=== PATIENT | female | born 1975 | race Caucasian/White ===

== ENCOUNTER 2019-11-13 15:57 | Inpatient (IN) | payer BC, OTHER ==
[~2019-11-13] VITALS: Ht 167.4 cm; Wt 145.5 kg
[~2019-11-13 15:57] MED LIST: HYDR-3720 PO; HYDR1CAP2; IBUPROFEN; PENI250T4
[2019-11-13] MEDS ORDERED: LACTATED RINGERS 1,000 ML IV ONE (16:10)
[2019-11-13] MEDS ORDERED: KETOROLAC 30 MG/ML VIAL IVP ONE (16:30)
[2019-11-13] MEDS ORDERED: NS IV 1000 ML 1,000 ML IV SCH (16:30)
[2019-11-13] MEDS ORDERED: fentaNYL INJECTION 100 MCG/2 ML AMP IVP ONE (16:30)
[2019-11-13 17:02] LABS: BASOPHILS % (AUTO) 0 % (0-10); EOSINOPHILS # (AUTO) 0.1 10^3/uL (0.0-0.3); EOSINOPHILS % (AUTO) 1 % (0-10); HEMATOCRIT 38 % (35-52); HEMOGLOBIN 12.9 G/DL (11.5-16.0); LYMPHOCYTES # (AUTO) 2.5 X 10^3 (1.0-4.0); LYMPHOCYTES % (AUTO) 13 % (12-44); MEAN CORPUSCULAR HEMOGLOBIN 29 PG (25-34); MEAN CORPUSCULAR HGB CONC 34 G/DL (32-36); MEAN CORPUSCULAR VOLUME 85 FL (80-99); MEAN PLATELET VOLUME 11.1 FL (7.4-10.4); MONOCYTES # (AUTO) 0.9 X 10^3 (0.0-1.0); MONOCYTES % (AUTO) 5 % (0-12); NEUTROPHILS # (AUTO) 15.1 X 10^3 (1.8-7.8); NEUTROPHILS % (AUTO) 81 % (42-75); PLATELET COUNT 300 10^3/uL (130-400); WHITE BLOOD COUNT 18.7 10^3/uL (4.3-11.0)
[2019-11-13 17:26] LABS: ALANINE AMINOTRANSFERASE 21 U/L (0-55); ALBUMIN 4.1 GM/DL (3.2-4.5); ALKALINE PHOSPHATASE 58 U/L (40-136); BILIRUBIN,TOTAL 0.6 MG/DL (0.1-1.0); BUN/CREATININE RATIO 10; CALCIUM 8.9 MG/DL (8.5-10.1); CARBON DIOXIDE 20 MMOL/L (21-32); CHLORIDE 104 MMOL/L (98-107); CREATININE SERUM 0.93 MG/DL (0.60-1.30); GFR ESTIMATED > 60; GLUCOSE 105 MG/DL (70-105); LIPASE 14 U/L (8-78); MAGNESIUM 1.9 MG/DL (1.6-2.4); POTASSIUM 3.3 MMOL/L (3.6-5.0); SODIUM 137 MMOL/L (135-145); TOTAL PROTEIN 7.6 GM/DL (6.4-8.2)
--- NOTE | 2019-11-13 17:28 | Diagnostic Imaging Report ---
CLINICAL INDICATION: Patient with left lower abdominal pain with radiation to back. EXAM: CT exam of the abdomen and pelvis is performed without IV or oral contrast using stone protocol. Coronal and sagittal reformatted images were created. Auto Exposure Controls were utilized during the CT exam to meet ALARA standards for radiation dose reduction. COMPARISONS: Ultrasound of the abdomen dated 06/27/2017. FINDINGS: Visualized lung bases: Unremarkable. Liver: Unremarkable as visualized. Gallbladder: Gallbladder is surgically resected. Pancreas: Unremarkable as visualized. Spleen: Unremarkable as visualized. Adrenal glands: Unremarkable. Kidneys/ ureters: Unremarkable as visualized. Aorta: Unremarkable as visualized. Intraabdominal/ retroperitoneal contents: Unremarkable. Intestines: There is a short segment of bowel wall thickening involving the proximal sigmoid colon with adjacent fat stranding, most concerning for diverticulitis. There are diverticula seen involving the transverse colon and descending colon. There is no intra-abdominal free air or abscess seen. Remainder of the intestines are unremarkable. There is no intestinal obstruction seen. Appendix: Unremarkable. Bladder: Unremarkable as visualized. Pelvic organs: Unremarkable as visualized. Extra abdominal/ pelvis regions: Unremarkable. Abdominal wall: Unremarkable. Bones: There are degenerative spurs involving both hips. There are small spurs involving the lower thoracic spine and lumbar spine. There is lower lumbar spine facet arthropathy. IMPRESSION: There is sigmoid diverticulitis. There is no abscess or intra-abdominal free air. Dictated by: Dictated on workstation # [id number]
--- NOTE | 2019-11-13 17:31 | ED Abdominal Pain ---
General Chief Complaint: Abdominal/GI Problems Stated Complaint: LEFT LOWER ABD PAIN;BACK PAIN Nursing Triage Note: AMB TO ROOM [place] [facility] WITH L LOWER ABD PAIN WITH RADIATION TO BACK. Sepsis Screen: No Definite Risk Source of Information: Patient Exam Limitations: No Limitations History of Present Illness Date Seen by Provider: Nov 13, 2019 Time Seen by Provider: 16:15 Initial Comments 44-year-old female who presents to the emergency room with complaints of left lower quadrant abdominal pain that radiates to her left flank and lower back. She denies any fevers, nausea, vomiting, diarrhea. She reports that the pain started this morning and has progressively gotten worse. She was seen and evaluated [place] [facility] and sent to the emergency from there. Timing/Duration: Getting Worse Severity/Quality: Sharp Location: LLQ Radiation: Back, Flank Associated Symptoms: Back Pain Allergies and Home Medications Allergies Coded Allergies: amoxicillin (Unverified Allergy, Mild, 10/03/08) codeine (Unverified Allergy, Mild, 10/03/08) potassium clavulanate (Unverified Allergy, Mild, 10/03/08) Home Medications Hydrocodone Bit/Acetaminophen 1 Ea Tab, 1 EA PO Q 4 - 6 HRS PRN Prescribed by: CASEY HARPER on 10/03/081922 Patient Home Medication List Home Medication List Reviewed: Yes Review of Systems Review of Systems Constitutional: see HPI; No chills, No fever Gastrointestinal: See HPI, Abdominal Pain Genitourinary: See HPI, Flank Pain Musculoskeletal: see HPI, back pain All Other Systems Reviewed Negative Unless Noted: Yes Past Xhxzvxk-Luereq-Pdanyv Hx Past Med/Social Hx: Reviewed Nursing Past Med/Soc Hx Patient Social History Alcohol Use: Denies Use Recreational Drug Use: No Smoking Status: Never a Smoker Recent Foreign Travel: No Contact w/Someone Who Travel: No Recent Infectious Disease Expo: No Past Medical History Surgeries: Yes Gallbladder, Hysterectomy, Tonsillectomy Respiratory: No Cardiac: Yes Hypertension Genitourinary: No Musculoskeletal: No Endocrine: No HEENT: No Cancer: No Psychosocial: No Family Medical History Reviewed Nursing Family Hx Physical Exam Vital Signs Vital Signs - First Documented 11/13/19 16:08 Temp 37.0 Pulse 92 Resp 18 B/P (MAP) 205/119 (147) Pulse Ox 98 O2 Delivery Room Air Capillary Refill : Less Than 3 Seconds Height/Weight/BMI Height: '" Weight: lbs. oz. kg; 49.00 BMI Method: General Appearance: WD/WN Respiratory: chest non-tender, lungs clear, normal breath sounds, no respiratory distress, no accessory muscle use Cardiovascular: normal peripheral pulses, regular rate, rhythm, no edema, no gallop, no JVD, no murmur Gastrointestinal: normal bowel sounds, soft, no organomegaly, no pulsatile mass, tenderness (left lower quadrant tenderness) Extremities: normal capillary refill Neurologic/Psychiatric: alert, normal mood/affect, oriented x 3 Skin: normal color, warm/dry Progress/Results/Core Measures Results/Orders Lab Results Laboratory Tests Test 11/13/19 16:50 11/13/19 17:55 Range/Units White Blood Count 18.7 H 4.3-11.0 10^3/uL Red Blood Count 4.43 4.35-5.85 10^6/uL Hemoglobin 12.9 11.5-16.0 G/DL Hematocrit 38 35-52 % Mean Corpuscular Volume 85 80-99 FL Mean Corpuscular Hemoglobin 29 25-34 PG Mean Corpuscular Hemoglobin Concent 34 32-36 G/DL Red Cell Distribution Width 13.8 10.0-14.5 % Platelet Count 300 130-400 10^3/uL Mean Platelet Volume 11.1 H 7.4-10.4 FL Neutrophils (%) (Auto) 81 H 42-75 % Lymphocytes (%) (Auto) 13 12-44 % Monocytes (%) (Auto) 5 0-12 % Eosinophils (%) (Auto) 1 0-10 % Basophils (%) (Auto) 0 0-10 % Neutrophils # (Auto) 15.1 H 1.8-7.8 X 10^3 Lymphocytes # (Auto) 2.5 1.0-4.0 X 10^3 Monocytes # (Auto) 0.9 0.0-1.0 X 10^3 Eosinophils # (Auto) 0.1 0.0-0.3 10^3/uL Basophils # (Auto) 0.0 0.0-0.1 10^3/uL Neutrophils % (Manual) 87 % Lymphocytes % (Manual) 10 % Monocytes % (Manual) 1 % Band Neutrophils 2 % Blood Morphology Comment NORMAL Sodium Level 137 135-145 MMOL/L Potassium Level 3.3 L 3.6-5.0 MMOL/L Chloride Level 104 98-107 MMOL/L Carbon Dioxide Level 20 L 21-32 MMOL/L Anion Gap 13 5-14 MMOL/L Blood Urea Nitrogen 9 7-18 MG/DL Creatinine 0.93 0.60-1.30 MG/DL Estimat Glomerular Filtration Rate > 60 BUN/Creatinine Ratio 10 Glucose Level 105 70-105 MG/DL Calcium Level 8.9 8.5-10.1 MG/DL Corrected Calcium 8.8 8.5-10.1 MG/DL Magnesium Level 1.9 1.6-2.4 MG/DL Total Bilirubin 0.6 0.1-1.0 MG/DL Aspartate Amino Transf (AST/SGOT) 19 5-34 U/L Alanine Aminotransferase (ALT/SGPT) 21 0-55 U/L Alkaline Phosphatase 58 40-136 U/L C-Reactive Protein High Sensitivity 3.77 H 0.00-0.50 MG/DL Total Protein 7.6 6.4-8.2 GM/DL Albumin 4.1 3.2-4.5 GM/DL Lipase 14 8-78 U/L Urine Color YELLOW Urine Clarity CLEAR Urine pH 5.5 5-9 Urine Specific Gr[place]is 1.025 H 1.016-1.022 Urine Protein NEGATIVE NEGATIVE Urine Glucose (UA) NEGATIVE NEGATIVE Urine Ketones NEGATIVE NEGATIVE Urine Nitrite NEGATIVE NEGATIVE Urine Bilirubin NEGATIVE NEGATIVE Urine Urobilinogen 0.2 < = 1.0 MG/DL Urine Leukocyte Esterase NEGATIVE NEGATIVE Urine RBC (Auto) TRACE-L NEGATIVE Urine RBC NONE /HPF Urine WBC RARE /HPF Urine Crystals NONE /LPF Urine Bacteria TRACE /HPF Urine Casts NONE /LPF Urine Mucus SMALL H /LPF Urine Culture Indicated NO My Orders Orders - YOANNA LUIS Fentanyl Injection (Sublimaze Injection (11/13/19 16:30) Ketorolac Injection (Toradol Injection) (11/13/19 16:30) Ns Iv 1000 Ml (Sodium Chloride 0.9%) (11/13/19 16:30) Morphine Injection (Morphine Injection (11/13/19 17:34) Levofloxacin 750 Mg/150 Ml Iv (Levaquin (11/14/19 09:00) Diphenhydramine Injection (Benadryl Inje (11/13/19 18:15) Medications Given in ED Current Medications Medications Dose Ordered Sig/Des Route Start Time Stop Time Status Last Admin Dose Admin Diphenhydramine HCl 25 mg ONCE ONCE IVP 11/13/19 18:15 11/13/19 18:16 DC 11/13/19 18:24 25 MG Fentanyl Citrate 50 mcg ONCE ONCE IVP 11/13/19 16:30 11/13/19 16:31 DC 11/13/19 16:37 50 MCG Ketorolac Tromethamine 30 mg ONCE ONCE IVP 11/13/19 16:30 11/13/19 16:31 DC 11/13/19 16:38 30 MG Lactated Ringer's 1,000 ml @ 0 mls/hr Q0M ONCE IV 11/13/19 16:10 11/13/19 16:11 DC 11/13/19 16:38 1,000 MLS/HR Vital Signs/I&O 11/13/19 16:08 Temp 37.0 Pulse 92 Resp 18 B/P (MAP) 205/119 (147) Pulse Ox 98 O2 Delivery Room Air Blood Pressure Mean: 147 Progress Progress Note : Time: 18:04 Progress Note Patient broke out in hives to the left forearm just above her IV site after IV administration of morphine. Patient denies any shortness of breath and hives are fading. We will give her a 25 mg IV of Benadryl. The patient did report that the morphine has resolved her pain at this time. Scuffs the case with Dr. Bird and Dr. Clinton and they kindly agreed to accept the patient to their services. Dr. Bird recommends giving her Levaquin and Flagyl for antibiotic coverage. She also recommends giving Toradol, Tylenol, Dilaudid, Phenergan, Zofran, as needed for symptomatic pain and nausea control. Because she also recommends giving Lovenox 40 daily. Departure Communication (Admissions) Time/Spoke to Admitting Phy: 18:00 Dr. Bird Time/Spoke to Consulting Phy: 17:50 Dr. Clinton Impression Primary Impression: Diverticulitis of intestine Disposition: ADMITTED INPATIENT Condition: Stable/Unchanged Admissions Decision to Admit Reason: Admit from ER (General) Decision to Admit/Date: Nov 13, 2019 Time/Decision to Admit Time: 18:00 Departure-Patient Inst. Referrals: SAMUEL BIRD DO (PCP/Family) Primary Care Physician YOANNA LUIS Nov 13, 2019 17:31
[2019-11-13] MEDS ORDERED: morphine INJ 10 MG/ML 1ML (SYR OR VIAL) IVP STA ×2 (17:32→17:34)
--- NOTE | 2019-11-13 17:34 | Consultation - Surgery ---
History of Present Illness History of Present Illness Patient Consulted On(jazmine/time) 11/13/19 17:29 Time Seen by Provider: 17:08 History of Present Illness Surgery asked to consult regarding LLQ abd pain. HPI: pt is a 44 yo female who presents with severe abdominal pain, she states all across the lower abdomen but mostly in the LLQ. She describes a sharp, stabbing pain that is constant and worse with movement. Lying still helps the pain, but not much. She states she has never had pain like this before. "I get occasional cramps but nothing like this". Pt states it all started this morning and then continued to get worse. Pain radiates to her back and flank area. Pt denies trouble breathing. Allergies and Home Medications Allergies Coded Allergies: Amoxicillin (Unverified Allergy, Mild, 10/03/08) Codeine (Unverified Allergy, Mild, 10/03/08) Potassium Clavulanate (Unverified Allergy, Mild, 10/03/08) Home Medications Hydrocodone Bit/Acetaminophen 1 Ea Tab, 1 EA PO Q 4 - 6 HRS PRN Prescribed by: CASEY HARPER on 10/03/081922 Patient Home Medication List Home Medication List Reviewed: Yes Past Gnrtlwh-Btyfwc-Fiwfmn Hx Patient Social History Alcohol Use: Denies Use Recreational Drug Use: No Smoking Status: Never a Smoker Recent Foreign Travel: No Contact w/Someone Who Travel: No Recent Infectious Disease Expo: No Surgeries History of Surgeries: Yes Surgeries: Gallbladder, Hysterectomy, Tonsillectomy Respiratory History of Respiratory Disorde: No Cardiovascular History of Cardiac Disorders: Yes Cardiac Disorders: Hypertension Neurological History of Neurological Disord: No Genitourinary History of Genitourinary Disor: No Gastrointestinal History of Gastrointestinal Di: No Musculoskeletal History of Musculoskeletal Dis: No Endocrine History of Endocrine Disorders: No HEENT History of HEENT Disorders: No Cancer History of Cancer: No Psychosocial History of Psychiatric Problem: No Family Medical History Significant Family History: GI Disease (Mother has Crohn's) Review of Systems-General Constitutional: No chills, No diaphoresis; malaise, weakness EENTM: No blurred vision, No double vision, No mouth pain, No mouth swelling, No epistaxis Cardiovascular: No chest pain, No edema, No palpitations Gastrointestinal: abdominal pain (LLQ); No hematemesis; loss of appetite; No nausea, No vomiting Genitourinary: No dysuria, No frequency, No hematuria Musculoskeletal: joint pain, joint swelling, muscle stiffness Skin: No change in color, No change in hair/nails Psychiatric/Neurological: Denies Anxiety, Denies Depressed, Denies Seizure, Denies Tremors Other pt denies hx of abnormal bleeding or bruising Physical Exam-General Problems Physical Exam Vital Signs Vital Signs - First Documented 11/13/19 16:08 Temp 37.0 Pulse 92 Resp 18 B/P (MAP) 205/119 (147) Pulse Ox 98 O2 Delivery Room Air Capillary Refill : Less Than 3 Seconds General Appearance: moderate distress, obese (morbidly) Eyes: Bilateral Eye PERRL, Bilateral Eye EOMI HEENT: pharynx normal; No scleral icterus (R), No scleral icterus (L) Neck: non-tender, supple Respiratory: chest non-tender, lungs clear, normal breath sounds, no respiratory distress, no accessory muscle use Cardiovascular: regular rate, rhythm, no murmur Peripheral Pulses: 2+ Carotid (R), 2+ Carotid (L), 2+ Radial Pulses (R), 2+ Radial Pulses (L) Gastrointestinal: soft, no organomegaly; No distended; guarding (voluntary LLQ), tenderness, hernia (small umbilical hernia) Back: no CVA tenderness, no vertebral tenderness Extremities: no pedal edema, no calf tenderness, normal capillary refill Neurologic/Psychiatric: insurance claims processor II-XII nml as tested, no motor/sensory deficits, alert, normal mood/affect, oriented x 3 Skin: normal color, warm/dry Lymphatic: no adenopathy (neck, axilla or groin) Data Review Labs Laboratory Tests 11/13/19 16:50: White Blood Count 18.7H, Red Blood Count 4.43, Hemoglobin 12.9, Hematocrit 38, Mean Corpuscular Volume 85, Mean Corpuscular Hemoglobin 29, Mean Corpuscular Hemoglobin Concent 34, Red Cell Distribution Width 13.8, Platelet Count 300, Mean Platelet Volume 11.1H, Neutrophils (%) (Auto) 81H, Lymphocytes (%) (Auto) 13, Monocytes (%) (Auto) 5, Eosinophils (%) (Auto) 1, Basophils (%) (Auto) 0, Neutrophils # (Auto) 15.1H, Lymphocytes # (Auto) 2.5, Monocytes # (Auto) 0.9, Eosinophils # (Auto) 0.1, Basophils # (Auto) 0.0, Sodium Level 137, Potassium Level 3.3L, Chloride Level 104, Carbon Dioxide Level 20L, Anion Gap 13, Blood Urea Nitrogen 9, Creatinine 0.93, Estimat Glomerular Filtration Rate > 60, BUN/Creatinine Ratio 10, Glucose Level 105, Calcium Level 8.9, Corrected Calcium 8.8, Magnesium Level 1.9, Total Bilirubin 0.6, Aspartate Amino Transf (AST/SGOT) 19, Alanine Aminotransferase (ALT/SGPT) 21, Alkaline Phosphatase 58, C-Reactive Protein High Sensitivity 3.77H, Total Protein 7.6, Albumin 4.1, Lipase 14 Assessment/Plan Assessment/Plan Assessment/Plan Acute Diverticulitis Morbid Obesity Hypokalemia Pt needs pain control, IV ABX, anti-emetics as needed, NPO, IV fluids and is being admitted to Medicine. I will monitor her abdominal exam and she should get Potassium replacement. I discussed diverticular disease and treatment including surgery and even temporary colostomy. However, right now she has localized pain, no free air and no free fluid.....I think we may have caught it early. She understands and all questions answered to her satisfaction. JEANCARLOS SHANKS DO Nov 13, 2019 17:34
[2019-11-13 18:04] LABS: BAND NEUTROPHILS 2 %; LYMPHOCYTES % (MANUAL) 10 %; MONOCYTES % (MANUAL) 1 %; NEUTROPHILS % (MANUAL) 87 %; RBC MORPH NORMAL
[2019-11-13 18:09] LABS: BILIRUBIN,URINE NEGATIVE (NEGATIVE); CLARITY,URINE CLEAR; COLOR,URINE YELLOW; GLUCOSE, URINE (UA) NEGATIVE (NEGATIVE); KETONES,URINE NEGATIVE (NEGATIVE); LEUKOCYTE ESTERASE ,URINE NEGATIVE (NEGATIVE); NITRITE,URINE NEGATIVE (NEGATIVE); PH,URINE 5.5 (5-9); PROTEIN,URINE NEGATIVE (NEGATIVE)
[2019-11-13] MEDS ORDERED: diphenhydrAMINE 50 MG/ML INJ (BENADRYL) IVP ONE (18:15)
[2019-11-13] MEDS ORDERED: LEVOFLOXACIN 750 MG/150 ML IV 150 ML IV ONE (18:29)
[2019-11-13 18:34] LABS: BACTERIA,URINE TRACE /HPF; WBC,URINE RARE /HPF
--- NOTE | 2019-11-13 19:05 | NUR ---
KAMILA ELLSWORTH admitted to room 417-1, with an admitting diagnosis of DIVERTICULITIS, on 11/13/19 from ED via , accompanied by ED STAFF. KAMILA ELLSWORTH introduced to surroundings, call light, bed controls, phone, TV, temperature control, lights, meal times, smoking policy, visitor policy, side rail policy, bathrooms and showers. Patient Rights given to patient in the handbook. KAMILA ELLSWORTH verbalizes understanding that [facility] is not responsible for the loss or damage to any personal effects or valuables that are kept in the patients possession during their hospitalization. KAMILA ELLSWORTH verbalizes understanding of Interdisciplinary Patient Education. Patient and/or family were informed about the Rapid Response Team and its purpose.
[2019-11-13] MEDS ORDERED: ACETAMINOPHEN 325 MG TABLET PO PRN (19:15)
[2019-11-13] MEDS ORDERED: PROMETHAZINE INJ 25 MG/ML (PHENERGAN) AMP IV PRN (19:15)
[2019-11-13] MEDS ORDERED: CATHETER FLUSH 10 ML SYR IV PRN (19:15)
[2019-11-13] MEDS ORDERED: HYDROmorphone 2 MG/ML VIAL (DILAUDID) IV PRN (19:15)
[2019-11-13 19:30] VITALS: BP 139/74
[2019-11-13] MEDS ORDERED: ENOXAPARIN 40 MG/0.4 ML (LOVENOX) SYR SC SCH (20:00)
[2019-11-13] MEDS: NS IV 1000 ML 1,000 ML IV SCH (20:06)
[2019-11-13] MEDS: metroNIDAZOLE 500MG/100ML IVPB 100 ML IV SCH (20:07)
[2019-11-13] MEDS: CATHETER FLUSH 10 ML SYR IV SCH (20:14)
[2019-11-13] MEDS: ONDANSETRON 4 MG/2 ML (SDV) Z0FRAN IV PRN (21:52)
[2019-11-14] VITALS (8 sets, daily range): BP systolic 111–143; BP diastolic 62–79
[2019-11-14] MEDS: metroNIDAZOLE 500MG/100ML IVPB 100 ML IV SCH ×4 (02:04→20:52)
[2019-11-14] MEDS: KETOROLAC 30 MG/ML VIAL IV PRN ×3 (02:08→19:46)
[2019-11-14 05:34] LABS: BASOPHILS % (AUTO) 0 % (0-10); EOSINOPHILS # (AUTO) 0.3 10^3/uL (0.0-0.3); EOSINOPHILS % (AUTO) 2 % (0-10); HEMATOCRIT 37 % (35-52); HEMOGLOBIN 12.3 G/DL (11.5-16.0); LYMPHOCYTES # (AUTO) 2.1 X 10^3 (1.0-4.0); LYMPHOCYTES % (AUTO) 15 % (12-44); MEAN CORPUSCULAR HEMOGLOBIN 29 PG (25-34); MEAN CORPUSCULAR HGB CONC 33 G/DL (32-36); MEAN CORPUSCULAR VOLUME 87 FL (80-99); MEAN PLATELET VOLUME 11.5 FL (7.4-10.4); MONOCYTES % (AUTO) 7 % (0-12); NEUTROPHILS # (AUTO) 10.6 X 10^3 (1.8-7.8); NEUTROPHILS % (AUTO) 76 % (42-75); PLATELET COUNT 185 10^3/uL (130-400); WHITE BLOOD COUNT 14.1 10^3/uL (4.3-11.0)
[2019-11-14] MEDS: CATHETER FLUSH 10 ML SYR IV SCH ×3 (05:56→21:02)
[2019-11-14 06:05] LABS: ALANINE AMINOTRANSFERASE 18 U/L (0-55); ALBUMIN 3.6 GM/DL (3.2-4.5); ALKALINE PHOSPHATASE 58 U/L (40-136); BILIRUBIN,TOTAL 0.7 MG/DL (0.1-1.0); BUN/CREATININE RATIO 10; CALCIUM 8.2 MG/DL (8.5-10.1); CARBON DIOXIDE 20 MMOL/L (21-32); CHLORIDE 104 MMOL/L (98-107); CREATININE SERUM 0.91 MG/DL (0.60-1.30); GFR ESTIMATED > 60; GLUCOSE 110 MG/DL (70-105); POTASSIUM 3.8 MMOL/L (3.6-5.0); SODIUM 136 MMOL/L (135-145); TOTAL PROTEIN 6.9 GM/DL (6.4-8.2)
[2019-11-14] MEDS: NS IV 1000 ML 1,000 ML IV SCH ×2 (06:42→16:31)
[2019-11-14] MEDS ORDERED: LEVOFLOXACIN 750 MG/150 ML IV 150 ML IV SCH (09:00)
[2019-11-14] MEDS: ENOXAPARIN 60 MG/0.6 ML (LOVENOX) SYR SC SCH ×2 (09:23→19:40)
[2019-11-14] MEDS: ONDANSETRON 4 MG/2 ML (SDV) Z0FRAN IV PRN (09:32)
--- NOTE | 2019-11-14 09:47 | History & Physical-Hospitalist ---
YONAS MARROQUIN MED STUDENT 11/14/19 0947: History of Present Illness HPI/Chief Complaint CC: LLQ pain HPI: 44 yo F presents with CC of LLQ pain that is a 8-9/10 and radiation to lower back and RLQ. Symptoms started yesterday (11/12) with sharp intense pain. Patient went to Urgent Care first then was sent to [place] [facility]. Patient states that she has experienced previous aching in the LLQ periodically, but thought nothing of it. Accompanying symptoms include pressure when urinating and nausea. Pain medication (morphine) provided in hospital has helped some with the pain but only to a 7-8/10. Nothing in particular makes it worse. The pain is continuous as an ache but has episodes of intense stabbing pain. Source: patient Date Seen 11/14/19 Time Seen by a Provider: 10:00 Attending Physician Jes Flores DO PCP Jes Flores DO Referring Physician Date of Admission Nov 13, 2019 at 18:27 Home Medications & Allergies Home Medications Reviewed patient Home Medication Reconciliation performed by pharmacy medication reconciliations plant health care technician and/or nursing. Patients Allergies have been reviewed. Allergies Allergies Coded Allergies amoxicillin (Unverified Allergy, Mild, 10/03/08) codeine (Unverified Allergy, Mild, 10/03/08) potassium clavulanate (Unverified Allergy, Mild, 10/03/08) Past Scfapbm-Nwudtq-Bjwtqt Hx Past Med/Social Hx: Reviewed Nursing Past Med/Soc Hx Patient Social History Alcohol Use: Denies Use Recreational Drug Use: No Smoking Status: Never a Smoker Recent Foreign Travel: No Contact w/other who traveled: No Recent Hopitalizations: No Recent Infectious Disease Expo: No Seasonal Allergies Seasonal Allergies: No Past Medical History Surgeries: Gallbladder, Hysterectomy, Tonsillectomy Cardiac: Hypertension History of Blood Disorders: No Family History Reviewed Nursing Family Hx GI Disease (Mother has Crohn's) Review of Systems Constitutional: chills; No fever Respiratory: No no symptoms reported, No see HPI, No cough, No dyspnea on exertion, No hemoptysis, No orthopnea, No phlegm, No short of breath, No stridor, No wheezing, No other Cardiovascular: No no symptoms reported, No see HPI, No chest pain; edema (Lower extremity); No Hx of Intervention, No palpitations, No syncope, No vascular heart diseas, No other Gastrointestinal: RLQ (Pain), LLQ (Pain), nausea Genitourinary: other (Pressure when urinating) : No Musculoskeletal: back pain Psychiatric/Neurological: Headache All Other Systems Reviewed Negative Unless Noted: Yes Physical Exam Physical Exam Vital Signs Vital Signs - First Documented 11/13/19 16:08 Temp 37.0 Pulse 92 Resp 18 B/P (MAP) 205/119 (147) Pulse Ox 98 O2 Delivery Room Air Capillary Refill : Less Than 3 Seconds Height, Weight, BMI Height: '" Weight: lbs. oz. kg; 51.92 BMI Method: General Appearance: WD/WN, Moderate Distress, Obese Eyes: Bilateral Eye Normal Inspection, Bilateral Eye PERRL, Bilateral Eye EOMI HEENT: PERRL/EOMI, Pharynx Normal Neck: Full Range of Motion, Normal Inspection, Non Tender, Supple Respiratory: Chest Non Tender, Lungs Clear, Normal Breath Sounds, No Accessory Muscle Use, No Respiratory Distress Cardiovascular: Regular Rate, Rhythm, No Gallop, No JVD, No Murmur, Normal Peripheral Pulses, Other (Lower extremity edema) Gastrointestinal: No Organomegaly, No Pulsatile Mass, Soft, Abnormal Bowel Sounds (Hyperactive bowel sounds), Guarding, Tenderness (LLQ (slight palpation) & RLQ (moderate palpation) ) Back: Normal Inspection, No CVA Tenderness, No Vertebral Tenderness Extremity: Normal Inspection, Normal Range of Motion, Non Tender, No Calf Tenderness, Pedal Edema (Non-pitting) Neurologic/Psychiatric: Alert, Oriented x3, No Motor/Sensory Deficits, Normal Mood/Affect, pure culture operator II-XII Norm as Tested Reflexes: 2+ Bicep (R), 2+ Bicep (L) (Brachioradialis), 2+ Ankle (R), 2+ Ankle (L) Skin: Normal Color, Warm/Dry Results Results/Procedures Labs Laboratory Tests 11/13/19 16:50 11/14/19 05:00 11/14/19 05:10 Patient resulted labs reviewed. Assessment/Plan Assessment and Plan ASSESSMENT: Acute diverticulitis Diverticulosis Chronic HTN Obese Vitamin B12 deficiency PLAN: Supportive Care Pain management Antibiotics Consult general surgery Lovenox/ DVT prophylaxis Ambulation Clinical Quality Measures DVT/VTE Risk/Contraindication: Risk Factor Score Per Nursin RFS Level Per Nursing on Admit: 2=Moderate JES FLORES DO 11/15/19 0519: History of Present Illness HPI/Chief Complaint CC: Acute Diverticulitis HPI: This is a 44yoWF clinic pt of 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 Her mother was diagnosed with Crohn's years ago by this examiner. Currently she is doing well, pain is under control but Dilaudid gives her a headache so I will change her back to Morphine. Past Wdwzkww-Wcontz-Gnhjod Hx Past Med/Social Hx: Reviewed Nursing Past Med/Soc Hx, Reviewed and Corrections made Patient Social History Marrital Status: Employed/Student: employed Alcohol Use: Occasionally Uses Smoking Status: Never a Smoker Past Medical History Cardiac: Hypertension Review of Systems Constitutional: see HPI Gastrointestinal: abdominal pain, nausea Physical Exam Physical Exam General Appearance: No Apparent Distress, Chronically ill, Obese Eyes: Right Eye Normal Inspection, Right Eye PERRL HEENT: PERRL/EOMI, Normal ENT Inspection, Pharynx Normal, Moist Mucous Membranes Neck: Full Range of Motion, Normal Inspection, Non Tender Respiratory: Chest Non Tender, Lungs Clear, Normal Breath Sounds, No Accessory Muscle Use, No Respiratory Distress Cardiovascular: Regular Rate, Rhythm, No Edema, No Gallop, No JVD, No Murmur, Normal Peripheral Pulses Gastrointestinal: Normal Bowel Sounds, No Organomegaly, No Pulsatile Mass, Non Tender, Soft Back: Normal Inspection, No CVA Tenderness, No Vertebral Tenderness Extremity: Normal Capillary Refill, Normal Inspection, Normal Range of Motion, Non Tender, No Calf Tenderness, No Pedal Edema Neurologic/Psychiatric: Alert, Oriented x3, No Motor/Sensory Deficits, Normal Mood/Affect Skin: Normal Color, Warm/Dry Lymphatic: No Adenopathy Assessment/Plan Admission Diagnosis Assessment: Acute diverticulitis Abdominal pain HTN Edema chronic Plan: IV abx IVF Pain control Admission Status: Inpatient Order (span 2 midnights) Reason for Inpatient Admission: diverticulitis Diagnosis/Problems Diagnosis/Problems (1) Diverticulitis of intestine Status: Acute Supervisory-Addendum Brief Verification & Attestation Participated in pt care: history, MDM, physical Personally performed: exam, history, MDM, supervision of care Care discussed with: Medical Student Procedures: n/a Results interpretation: Verified all documentation Verification and Attestation of Medical Student E/M Service A medical student performed and documented this service in my presence. I reviewed and verified all information documented by the medical student and made modifications to such information, when appropriate. I personally performed the physical exam and medical decision making. Jes Flores, Nov 15, 2019,05:19 YONAS MARROQUIN MED STUDENT Nov 14, 2019 09:47 JES FLORES DO Nov 15, 2019 05:19
[2019-11-14] MEDS ORDERED: morphine INJ 10 MG/ML 1ML (SYR OR VIAL) IVP PRN (10:15)
--- NOTE | 2019-11-14 14:49 | Progress Note - Surgery ---
Subjective Time Seen by a Provider: 12:26 Subjective/Events-last exam Pt seen and examined, states she still has pretty severe pain; but maybe slightly better than yesterday. Denies emesis and no flatus or BM. Review of Systems General: Fatigue, Malaise Pulmonary: No Dyspnea, No Cough Cardiovascular: No: Chest Pain, Palpitations Gastrointestinal: Nausea, Abdominal Pain; No: Vomiting Objective Exam Vital Signs Date Time Temp Pulse Resp B/P (MAP) Pulse Ox O2 Delivery O2 Flow Rate FiO2 11/14/19 12:00 36.0 74 20 128/67 (87) 96 Room Air 11/14/19 08:00 35.7 73 20 111/76 (88) 92 Room Air 11/14/19 04:40 36.9 73 16 115/68 (84) 94 Room Air 11/14/19 00:14 36.5 84 18 118/62 (80) 97 Room Air 11/13/19 22:49 98 Room Air 11/13/19 19:30 36.4 82 18 139/74 98 Room Air 11/13/19 19:30 36.4 82 18 139/74 (95) 98 Room Air 11/13/19 18:42 37.0 92 18 179/91 98 11/13/19 16:08 37.0 92 18 205/119 (147) 98 Room Air I & O 11/14/19 07:00 Intake Total 2150 ml Output Total 350 ml Balance 1800 ml Capillary Refill : Less Than 3 Seconds General Appearance: Mild Distress, Obese HEENT: PERRL/EOMI Respiratory: Chest Non Tender, Lungs Clear, Normal Breath Sounds, No Accessory Muscle Use, No Respiratory Distress Cardiovascular: Regular Rate, Rhythm, No Murmur, Other (Lower extremity edema) Peripheral Pulses: 2+ Carotid (R), 2+ Carotid (L), 2+ Radial Pulses (R), 2+ Radial Pulses (L) Gastrointestinal: normal bowel sounds, soft, no organomegaly, no pulsatile mass, tenderness (left lower quadrant mostly, some suprapubic), hernia (umbilical) Extremity: Non Tender, Pedal Edema (Non-pitting) Neurologic/Psychiatric: Alert, Oriented x3 Results Lab Laboratory Tests 11/13/19 16:50: White Blood Count 18.7H, Red Blood Count 4.43, Hemoglobin 12.9, Hematocrit 38, Mean Corpuscular Volume 85, Mean Corpuscular Hemoglobin 29, Mean Corpuscular Hemoglobin Concent 34, Red Cell Distribution Width 13.8, Platelet Count 300, Mean Platelet Volume 11.1H, Neutrophils (%) (Auto) 81H, Lymphocytes (%) (Auto) 13, Monocytes (%) (Auto) 5, Eosinophils (%) (Auto) 1, Basophils (%) (Auto) 0, Neutrophils # (Auto) 15.1H, Lymphocytes # (Auto) 2.5, Monocytes # (Auto) 0.9, Eosinophils # (Auto) 0.1, Basophils # (Auto) 0.0, Neutrophils % (Manual) 87, Lymphocytes % (Manual) 10, Monocytes % (Manual) 1, Band Neutrophils 2, Blood Morphology Comment NORMAL, Sodium Level 137, Potassium Level 3.3L, Chloride L evel 104, Carbon Dioxide Level 20L, Anion Gap 13, Blood Urea Nitrogen 9, Creatinine 0.93, Estimat Glomerular Filtration Rate > 60, BUN/Creatinine Ratio 10, Glucose Level 105, Calcium Level 8.9, Corrected Calcium 8.8, Magnesium Level 1.9, Total Bilirubin 0.6, Aspartate Amino Transf (AST/SGOT) 19, Alanine Aminotransferase (ALT/SGPT) 21, Alkaline Phosphatase 58, C-Reactive Protein High Sensitivity 3.77H, Total Protein 7.6, Albumin 4.1, Lipase 14 11/13/19 17:55: Urine Color YELLOW, Urine Clarity CLEAR, Urine pH 5.5, Urine Specific [place] 1.025H, Urine Protein NEGATIVE, Urine Glucose (UA) NEGATIVE, Urine Ketones NEGATIVE, Urine Nitrite NEGATIVE, Urine Bilirubin NEGATIVE, Urine Urobilinogen 0.2, Urine Leukocyte Esterase NEGATIVE, Urine RBC (Auto) TRACE-L, Urine RBC NONE, Urine WBC RARE, Urine Crystals NONE, Urine Bacteria TRACE, Urine Casts NONE, Urine Mucus SMALLH, Urine Culture Indicated NO 11/14/19 05:00: White Blood Count 14.1H, Red Blood Count 4.28L, Hemoglobin 12.3, Hematocrit 37, Mean Corpuscular Volume 87, Mean Corpuscular Hemoglobin 29, Mean Corpuscular Hemoglobin Concent 33, Red Cell Distribution Width 14.3, Platelet Count 185, Mean Platelet Volume 11.5H, Neutrophils (%) (Auto) 76H, Lymphocytes (%) (Auto) 15, Monocytes (%) (Auto) 7, Eosinophils (%) (Auto) 2, Basophils (%) (Auto) 0, Neutrophils # (Auto) 10.6H, Lymphocytes # (Auto) 2.1, Monocytes # (Auto) 1.0, Eosinophils # (Auto) 0.3, Basophils # (Auto) 0.0 11/14/19 05:10: Sodium Level 136, Potassium Level 3.8, Chloride Level 104, Carbon Dioxide Level 20L, Anion Gap 12, Blood Urea Nitrogen 9, Creatinine 0.91, Estimat Glomerular Filtration Rate > 60, BUN/Creatinine Ratio 10, Glucose Level 110H, Calcium Level 8.2L, Corrected Calcium 8.5, Total Bilirubin 0.7, Aspartate Amino Transf (AST/SGOT) 15, Alanine Aminotransferase (ALT/SGPT) 18, Alkaline Phosphatase 58, Total Protein 6.9, Albumin 3.6 11/14/19 11:36: Glucometer 89 Assessment/Plan Assessment/Plan Assessment/Plan Acute Diverticulitis Morbid Obesity Hypokalemia - resolved Continue pain control, IV ABX, anti-emetics as needed, NPO, and IV fluids. Pt's WBC is trending down but still above normal and abdominal exam is no worse than yesterday. Pt still has localized pain so this is still an early diverticulitis that can be treated non-operatively. All questions answered to her satisfaction. Clinical Quality Measures DVT/VTE Risk/Contraindication: Risk Factor Score Per Nursin RFS Level Per Nursing on Admit: 2=Moderate JEANCARLOS SHANKS DO Nov 14, 2019 14:49
[2019-11-14] MEDS ORDERED: ATOR20TA66 PO (15:54)
[2019-11-14] MEDS ORDERED: TRIA1TAB3 PO (15:54)
[2019-11-14] MEDS ORDERED: CYAN500T62 PO (15:54)
[2019-11-14] MEDS ORDERED: PROP15DR OU (15:54)
[2019-11-14] MEDS ORDERED: AMLO5TAB9 PO (15:54)
--- NOTE | 2019-11-14 15:57 | NUR ---
SPOKE WITH THE PT AND CALLED [facility] TO COMPLETE THE MED REC LAST FILL DATES: 08-30-2019 ATORVASTATIN 20MG #30/30DS- I DID DOCUMENT THE PAST DUE FILL ON THE MED REC 09-27-2019 AMLODIPINE 5MG #60/30DS- I DID DOCUMENT THE PAST DUE FILL ON THE MED REC 10-18-2019 TRIAMTERENE/HCTZ 37.5/25MG #30/30DS OTC MEDS: VIT B-12 SYSTANE EYE DROPS
[2019-11-14] MEDS ORDERED: NS IV 1000 ML 1,000 ML IV SCH ×2 (17:00→17:45)
[2019-11-14] MEDS: LEVOFLOXACIN 750 MG/150 ML IV 150 ML IV SCH (17:52)
[2019-11-15] MEDS: metroNIDAZOLE 500MG/100ML IVPB 100 ML IV SCH ×4 (01:58→19:38)
[2019-11-15] MEDS: NS IV 1000 ML 1,000 ML IV SCH ×3 (05:26→21:44)
[2019-11-15] MEDS: KETOROLAC 30 MG/ML VIAL IV PRN ×3 (05:26→19:43)
[2019-11-15] MEDS: CATHETER FLUSH 10 ML SYR IV SCH ×3 (05:28→21:44)
[2019-11-15 06:26] LABS: BASOPHILS % (AUTO) 0 % (0-10); EOSINOPHILS # (AUTO) 0.2 10^3/uL (0.0-0.3); EOSINOPHILS % (AUTO) 2 % (0-10); HEMATOCRIT 34 % (35-52); HEMOGLOBIN 11.3 G/DL (11.5-16.0); LYMPHOCYTES # (AUTO) 2.3 X 10^3 (1.0-4.0); LYMPHOCYTES % (AUTO) 24 % (12-44); MEAN CORPUSCULAR HEMOGLOBIN 29 PG (25-34); MEAN CORPUSCULAR HGB CONC 33 G/DL (32-36); MEAN CORPUSCULAR VOLUME 88 FL (80-99); MONOCYTES # (AUTO) 0.8 X 10^3 (0.0-1.0); MONOCYTES % (AUTO) 8 % (0-12); NEUTROPHILS # (AUTO) 6.2 X 10^3 (1.8-7.8); NEUTROPHILS % (AUTO) 66 % (42-75); PLATELET COUNT 270 10^3/uL (130-400); WHITE BLOOD COUNT 9.4 10^3/uL (4.3-11.0)
[2019-11-15 06:37] LABS: ALBUMIN 3.5 GM/DL (3.2-4.5); CHLORIDE 108 MMOL/L (98-107); POTASSIUM 3.4 MMOL/L (3.6-5.0); SODIUM 140 MMOL/L (135-145)
[2019-11-15 06:38] LABS: CALCIUM 8.3 MG/DL (8.5-10.1)
[2019-11-15 06:39] LABS: GLUCOSE 98 MG/DL (70-105)
[2019-11-15 06:40] LABS: TOTAL PROTEIN 6.8 GM/DL (6.4-8.2)
[2019-11-15 06:41] LABS: BILIRUBIN,TOTAL 0.5 MG/DL (0.1-1.0); CARBON DIOXIDE 21 MMOL/L (21-32)
[2019-11-15 06:43] LABS: ALKALINE PHOSPHATASE 56 U/L (40-136); CREATININE SERUM 0.78 MG/DL (0.60-1.30); GFR ESTIMATED > 60
[2019-11-15 06:44] LABS: BUN/CREATININE RATIO 8
[2019-11-15 06:46] LABS: ALANINE AMINOTRANSFERASE 17 U/L (0-55)
[2019-11-15 08:00] VITALS: BP 138/72
[2019-11-15] MEDS: ENOXAPARIN 60 MG/0.6 ML (LOVENOX) SYR SC SCH ×2 (08:22→19:38)
--- NOTE | 2019-11-15 08:27 | Progress Note - Surgery ---
JACOB TROTTER MED STUDENT 11/15/19 0827: Subjective Date Seen by a Provider: Nov 15, 2019 Time Seen by a Provider: 08:00 Subjective/Events-last exam pt was sitting up in the recliner. pt states that she is still having abdominal pain. rated 6/10. pain described as sometimes sharp and sometimes dull. pt stated that the pain is better than it has been the past few days. pt stated that nothing really makes is better and nothing is making it worse. pt had tenderness to palpation of the LLQ. pt denies any nausea, vomiting, diarrhea or constipation. Review of Systems General: No Chills; Fatigue Pulmonary: No Dyspnea, No Cough Cardiovascular: No: Chest Pain, Palpitations Gastrointestinal: Abdominal Pain (LLQ); No: Nausea, Vomiting, Diarrhea, Constipation, Hematochezia Genitourinary: No Dysuria, No Incontinence Focused Exam Respiratory: Chest Non Tender, Lungs Clear, Normal Breath Sounds, No Accessory Muscle Use, No Respiratory Distress Cardiovascular: Regular Rate, Rhythm, No Murmur Peripheral Pulses: 2+ Carotid (R), 2+ Carotid (L), 2+ Radial Pulses (R), 2+ Radial Pulses (L) Skin: normal color, warm/dry; No diaphoresis Objective Exam Vital Signs Date Time Temp Pulse Resp B/P (MAP) Pulse Ox O2 Delivery O2 Flow Rate FiO2 11/14/19 23:36 37.2 80 18 129/68 (88) 98 Room Air 11/14/19 20:36 36.0 81 17 126/76 (93) 100 Room Air 11/14/19 20:00 Room Air 11/14/19 17:03 36.4 77 18 143/79 (100) 97 Room Air 11/14/19 16:00 36.4 77 18 143/79 (100) 97 Room Air 11/14/19 12:00 36.0 74 20 128/67 (87) 96 Room Air 11/14/19 09:00 96 Room Air I & O 11/15/19 07:00 Intake Total 200 ml Output Total 1500 ml Balance -1300 ml Capillary Refill : Less Than 3 Seconds General Appearance: No Apparent Distress, WD/WN, Obese HEENT: No Scleral Icterus (L), No Scleral Icterus (R) Neck: Non Tender; No Lymphadenopathy (L), No Lymphadenopathy (R) Respiratory: Chest Non Tender, Lungs Clear, Normal Breath Sounds, No Accessory Muscle Use, No Respiratory Distress Cardiovascular: Regular Rate, Rhythm, No Murmur, Normal Peripheral Pulses Peripheral Pulses: 2+ Carotid (R), 2+ Carotid (L), 2+ Radial Pulses (R), 2+ Radial Pulses (L) Gastrointestinal: normal bowel sounds, soft, tenderness (LLQ), hernia Extremity: Normal Capillary Refill Neurologic/Psychiatric: Alert, Oriented x3, No Motor/Sensory Deficits, Normal Mood/Affect, ct manager II-XII Norm as Tested Skin: Normal Color, Warm/Dry Lymphatic: No Adenopathy Results Lab Laboratory Tests 11/14/19 11:36: Glucometer 89 11/15/19 06:10: White Blood Count 9.4, Red Blood Count 3.91L, Hemoglobin 11.3L, Hematocrit 34L, Mean Corpuscular Volume 88, Mean Corpuscular Hemoglobin 29, Mean Corpuscular Hemoglobin Concent 33, Red Cell Distribution Width 14.0, Platelet Count 270, Mean Platelet Volume 11.0H, Neutrophils (%) (Auto) 66, Lymphocytes (%) (Auto) 24, Monocytes (%) (Auto) 8, Eosinophils (%) (Auto) 2, Basophils (%) (Auto) 0, Neutrophils # (Auto) 6.2, Lymphocytes # (Auto) 2.3, Monocytes # (Auto) 0.8, Eosinophils # (Auto) 0.2, Basophils # (Auto) 0.0, Sodium Level 140, Potassium Level 3.4L, Chloride Level 108H, Carbon Dioxide Level 21, Anion Gap 11, Blood Urea Nitrogen 6L, Creatinine 0.78, Estimat Glomerular Filtration Rate > 60, BUN/Creatinine Ratio 8, Glucose Level 98, Calcium Level 8.3L, Corrected Calcium 8.7, Total Bilirubin 0.5, Aspartate Amino Transf (AST/SGOT) 17, Alanine Aminotransferase (ALT/SGPT) 17, Alkaline Phosphatase 56, Total Protein 6.8, Albumin 3.5, Procalcitonin 0.06 Assessment/Plan Assessment/Plan Assessment/Plan Acute Diverticulitis Early diverticulitis, still planning on treating non-operatively. continue pain management continue antibiotics continue symptomatic care as needed Clinical Quality Measures DVT/VTE Risk/Contraindication: Risk Factor Score Per Nursin RFS Level Per Nursing on Admit: 2=Moderate ANATOLY CLINTON DO 11/15/19 1135: Subjective Time Seen by a Provider: 10:13 Subjective/Events-last exam Pt seen and examined, states she thinks her pain is better "but still there". She would like to try eating something. She is passing gas but no BM. Review of Systems General: No Chills; Fatigue Pulmonary: No Dyspnea, No Cough Cardiovascular: No: Chest Pain, Palpitations Gastrointestinal: Abdominal Pain (LLQ); No: Nausea, Vomiting, Diarrhea, Constipation Objective Exam General Appearance: No Apparent Distress, Obese HEENT: Moist Mucous Membranes Respiratory: Chest Non Tender, Lungs Clear, Normal Breath Sounds, No Accessory Muscle Use, No Respiratory Distress Cardiovascular: Regular Rate, Rhythm, No Murmur Gastrointestinal: soft, tenderness (LLQ), hernia Neurologic/Psychiatric: Alert, Oriented x3 Skin: Normal Color, Warm/Dry Assessment/Plan Assessment/Plan Assessment/Plan Diverticulitis - seems to be improving and WBC is in normal range now. Will try clears and see how pt does, as long as pain does not get worse will be able to continue diet. Continue ABX and can switch to oral before she is D/C'd home. She might be able to go by Monday and if that is the case should follow up in my office in the next week or two. Will need a colonoscopy in about 8 weeks. Pt had no other questions. Supervisory-Addendum Brief Verification & Attestation Participated in pt care: history, MDM, physical Personally performed: exam, history, MDM Care discussed with: Medical Student Procedures: n/a Verification and Attestation of Medical Student E/M Service A medical student performed and documented this service. I then reviewed and verified all information documented by the medical student and made modifications to such information, when appropriate. I personally performed a physical exam, medical decision making and then discussed any differences between the notes and made revisions as necessary to create one note. Anatoly Clinton , 11/15/19 , 11:35 JACOB TROTTER MED STUDENT Nov 15, 2019 08:27 ANATOLY CLINTON DO Nov 15, 2019 11:35
--- NOTE | 2019-11-15 11:20 | Physical Therapy Progress Note ---
Therapy Progress Note Order for PT evaluation received. Patient states she has been ambulating on her own in this hospital, doesn't use a cane or walker. Patient states she feels steady, no LOB and feels she is at her normal level of functional mobility. Patient feels she will be able to get around her home just fine if she was there. No eval for patient at this time, patient told to contact nurse for another order if a need arises. CARLY BLANK PT Nov 15, 2019 11:20
--- NOTE | 2019-11-15 12:08 | Progress Note - Hospitalist ---
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 Her mother was diagnosed with Crohn's years ago by this examiner. Currently she is doing well, pain is under control but Dilaudid gives her a headache so I will change her back to Morphine. Subjective/Events-last exam Patient seen at 9:15 am by medical student Otilio Marroquin * Patient awake/ alert and in chair * No acute distress and w/o facial pallor * Much more tolerable to pain * Pleasant conversation Review of Systems General: No Chills, No Night Sweats, No Fatigue, No Malaise, No Appetite, No Other HEENT: No Head Aches, No Visual Changes, No Eye Pain, No Ear Pain, No Dysphasia, No Sinus Congestion, No Post Nasal Drip, No Sore Throat, No Other Pulmonary: No Dyspnea, No Cough, No Pleuritic Chest Pain, No Other Cardiovascular: No: Chest Pain, Palpitations, Orthopnea, Paroxysmal Noc. Dyspnea, Edema, Lt Headedness, Other Gastrointestinal: Abdominal Pain (6-8/10 dull to sharp); No: Nausea, Vomiting, Diarrhea, Constipation, Melena, Hematochezia, Other Genitourinary: No Dysuria, No Frequency, No Incontinence, No Hematuria, No Retention, No Other Musculoskeletal: No: other, neck pain, shoulder pain, arm pain, back pain, hand pain, leg pain, foot pain Neurological: No: Weakness, Numbness, Incoordination, Change in speech, Confusion, Seizures, Other Objective Exam Vital Signs Vital Signs Date Time Temp Pulse Resp B/P (MAP) Pulse Ox O2 Delivery O2 Flow Rate FiO2 11/15/19 09:00 Room Air 11/15/19 08:00 36.0 81 18 138/72 (94) 96 Capillary Refill : Less Than 3 Seconds General Appearance: No Apparent Distress, WD/WN, Obese Respiratory: Chest Non Tender, Lungs Clear, Normal Breath Sounds, No Accessory Muscle Use, No Respiratory Distress Cardiovascular: Regular Rate, Rhythm, No Gallop, No JVD, No Murmur Extremity: Pedal Edema Neurologic/Psychiatric: Alert, Oriented x3, Normal Mood/Affect Results/Procedures Lab Laboratory Tests 11/15/19 06:10 Patient resulted labs reviewed. Assessment/Plan Assessment and Plan Assess & Plan/Chief Complaint ASSESSMENT: Acute diverticulitis Diverticulosis Chronic HTN Obese Vitamin B12 deficiency PLAN: Clear liquid diet as tolerated Supportive Care Pain management Antibiotics Lovenox/ DVT prophylaxis Ambulation Clinical Quality Measures DVT/VTE Risk/Contraindication: Risk Factor Score Per Nursin RFS Level Per Nursing on Admit: 2=Moderate SAMUEL BIRD DO 11/16/19 0557: Subjective HPI/CC On Admission Date Seen by Provider: Nov 15, 2019 Time Seen by Provider: 10:00 Subjective/Events-last exam Pt doing a lot better Clear liquid diet will be started WBC is better Pain is better Will need a colonoscopy in 8 weeks Pain is much improved Will order PT evaluation Objective Exam General Appearance: No Apparent Distress, WD/WN Assessment/Plan Assessment and Plan Assess & Plan/Chief Complaint Pain control Abx Supervisory-Addendum Brief Verification & Attestation Participated in pt care: history, MDM, physical Personally performed: exam, history, MDM, supervision of care Care discussed with: Medical Student Procedures: n/a Results interpretation: Verified all documentation Verification and Attestation of Medical Student E/M Service A medical student performed and documented this service in my presence. I reviewed and verified all information documented by the medical student and made modifications to such information, when appropriate. I personally performed the physical exam and medical decision making. Samuel Bird Nov 16, 2019,05:57 OTILIO MARROQUIN MED STUDENT Nov 15, 2019 12:08 SAMUEL BIRD DO Nov 16, 2019 05:57
[2019-11-15 16:10] VITALS: BP 145/82
[2019-11-15] MEDS: LEVOFLOXACIN 750 MG/150 ML IV 150 ML IV SCH (17:34)
[2019-11-16] VITALS: BP 126/61
[2019-11-16] MEDS: metroNIDAZOLE 500MG/100ML IVPB 100 ML IV SCH ×4 (02:29→20:09)
[2019-11-16] MEDS: CATHETER FLUSH 10 ML SYR IV SCH ×3 (05:28→20:09)
[2019-11-16] MEDS: NS IV 1000 ML 1,000 ML IV SCH (05:32)
--- NOTE | 2019-11-16 06:00 | Progress Note - Hospitalist ---
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 Her mother was diagnosed with Crohn's years ago by this examiner. Currently she is doing well, pain is under control but Dilaudid gives her a headache so I will change her back to Morphine. Subjective/Events-last exam Patient doing better CLD is advanced Ambulating well Minimal pain LLQ Review of Systems Gastrointestinal: Abdominal Pain Objective Exam Vital Signs Vital Signs Date Time Temp Pulse Resp B/P (MAP) Pulse Ox O2 Delivery O2 Flow Rate FiO2 11/16/19 16:00 37.2 83 18 170/85 (113) 97 Room Air Capillary Refill : Less Than 3 Seconds General Appearance: No Apparent Distress, WD/WN, Chronically ill, Obese Respiratory: Chest Non Tender, Lungs Clear, Normal Breath Sounds, No Accessory Muscle Use, No Respiratory Distress Cardiovascular: Regular Rate, Rhythm, No Edema, No Gallop, No JVD, No Murmur, Normal Peripheral Pulses Gastrointestinal: Normal Bowel Sounds, No Organomegaly, No Pulsatile Mass, Soft, Tenderness Neurologic/Psychiatric: Alert, Oriented x3, No Motor/Sensory Deficits, Normal Mood/Affect Results/Procedures Lab Laboratory Tests 11/16/19 06:37 Patient resulted labs reviewed. Assessment/Plan Assessment and Plan Assess & Plan/Chief Complaint Assessment: LLQ acute diverticulitis Pain control Abx Diagnosis/Problems Diagnosis/Problems (1) Diverticulitis of intestine Status: Acute Clinical Quality Measures DVT/VTE Risk/Contraindication: Risk Factor Score Per Nursin RFS Level Per Nursing on Admit: 2=Moderate SAMUEL BIRD DO Nov 16, 2019 06:00
[2019-11-16 06:44] LABS: BASOPHILS % (AUTO) 0 % (0-10); EOSINOPHILS # (AUTO) 0.3 10^3/uL (0.0-0.3); EOSINOPHILS % (AUTO) 3 % (0-10); HEMATOCRIT 33 % (35-52); LYMPHOCYTES # (AUTO) 2.1 X 10^3 (1.0-4.0); LYMPHOCYTES % (AUTO) 26 % (12-44); MEAN CORPUSCULAR HEMOGLOBIN 29 PG (25-34); MEAN CORPUSCULAR HGB CONC 33 G/DL (32-36); MEAN CORPUSCULAR VOLUME 87 FL (80-99); MEAN PLATELET VOLUME 10.9 FL (7.4-10.4); MONOCYTES # (AUTO) 0.6 X 10^3 (0.0-1.0); MONOCYTES % (AUTO) 8 % (0-12); NEUTROPHILS # (AUTO) 5.1 X 10^3 (1.8-7.8); NEUTROPHILS % (AUTO) 63 % (42-75); PLATELET COUNT 266 10^3/uL (130-400); WHITE BLOOD COUNT 8.1 10^3/uL (4.3-11.0)
[2019-11-16 07:06] LABS: ALBUMIN 3.3 GM/DL (3.2-4.5); CHLORIDE 108 MMOL/L (98-107); POTASSIUM 3.8 MMOL/L (3.6-5.0); SODIUM 140 MMOL/L (135-145)
[2019-11-16 07:08] LABS: GLUCOSE 127 MG/DL (70-105); TOTAL PROTEIN 6.4 GM/DL (6.4-8.2)
[2019-11-16 07:09] LABS: CARBON DIOXIDE 23 MMOL/L (21-32)
[2019-11-16 07:10] LABS: BILIRUBIN,TOTAL 0.3 MG/DL (0.1-1.0)
[2019-11-16 07:12] LABS: ALKALINE PHOSPHATASE 57 U/L (40-136); CREATININE SERUM 0.79 MG/DL (0.60-1.30); GFR ESTIMATED > 60
[2019-11-16 07:13] LABS: BUN/CREATININE RATIO 5
[2019-11-16 07:15] LABS: ALANINE AMINOTRANSFERASE 19 U/L (0-55)
[2019-11-16 07:46] VITALS: BP 126/66
[2019-11-16] MEDS: ENOXAPARIN 60 MG/0.6 ML (LOVENOX) SYR SC SCH ×2 (07:51→20:09)
[2019-11-16] MEDS: KETOROLAC 30 MG/ML VIAL IV PRN ×2 (09:31→17:20)
--- NOTE | 2019-11-16 11:58 | Progress Note ---
Subjective Date Seen by a Provider: Nov 16, 2019 Time Seen by a Provider: 10:50 Subjective/Events-last exam Patient seen with Dr. Perez. Patient reports doing better and pain is improving but still there in the LLQ. Tolerating diet with no N/V. Denies any fever/chills. Having diarrhea. Objective Exam Vital Signs Date Time Temp Pulse Resp B/P (MAP) Pulse Ox O2 Delivery O2 Flow Rate FiO2 11/16/19 09:00 Room Air 11/16/19 07:46 37.0 81 16 126/66 (86) 96 Room Air 11/16/19 00:00 36.0 78 18 126/61 (82) 95 Room Air 11/15/19 21:00 Room Air 11/15/19 16:10 36.4 71 18 145/82 (103) 98 Room Air I & O 11/16/19 07:00 Intake Total 2110 ml Output Total 500 ml Balance 1610 ml Capillary Refill : Less Than 3 Seconds General Appearance: No Apparent Distress, WD/WN Neck: Full Range of Motion, Normal Inspection Respiratory: Normal Breath Sounds, No Accessory Muscle Use, No Respiratory Distress Cardiovascular: Regular Rate, Rhythm, No Edema Gastrointestinal: normal bowel sounds, soft, tenderness (LLQ) Extremity: Normal Inspection, Normal Range of Motion Neurologic/Psychiatric: Alert, Oriented x3 Skin: Normal Color, Warm/Dry Results Lab Laboratory Tests 11/16/19 06:37: White Blood Count 8.1, Red Blood Count 3.81L, Hemoglobin 11.0L, Hematocrit 33L, Mean Corpuscular Volume 87, Mean Corpuscular Hemoglobin 29, Mean Corpuscular Hemoglobin Concent 33, Red Cell Distribution Width 14.2, Platelet Count 266, Mean Platelet Volume 10.9H, Neutrophils (%) (Auto) 63, Lymphocytes (%) (Auto) 26, Monocytes (%) (Auto) 8, Eosinophils (%) (Auto) 3, Basophils (%) (Auto) 0, Neutrophils # (Auto) 5.1, Lymphocytes # (Auto) 2.1, Monocytes # (Auto) 0.6, Eosinophils # (Auto) 0.3, Basophils # (Auto) 0.0, Sodium Level 140, Potassium Level 3.8, Chloride Level 108H, Carbon Dioxide Level 23, Anion Gap 9, Blood Urea Nitrogen 4L, Creatinine 0.79, Estimat Glomerular Filtration Rate > 60, BUN/Creatinine Ratio 5, Glucose Level 127H, Calcium Level 8.0L, Corrected Calcium 8.6, Total Bilirubin 0.3, Aspartate Amino Transf (AST/SGOT) 16, Alanine Aminotransferase (ALT/SGPT) 19, Alkaline Phosphatase 57, Total Protein 6.4, Al bumin 3.3 Assessment/Plan Assessment/Plan Assess & Plan/Chief Complaint Acute Diverticulitis VSS WBC 8.1 Tolerating clear liquids will advance to low residue Continue abx and pain meds as needed Clinical Quality Measures DVT/VTE Risk/Contraindication: Risk Factor Score Per Nursin RFS Level Per Nursing on Admit: 2=Moderate LAZ GONZALES RUG CUTTER HELPER Nov 16, 2019 11:58
[2019-11-16 16:00] VITALS: BP 170/85
[2019-11-16] MEDS: LEVOFLOXACIN 750 MG/150 ML IV 150 ML IV SCH (17:13)
[2019-11-17] VITALS: BP 154/72
[2019-11-17] MEDS: metroNIDAZOLE 500MG/100ML IVPB 100 ML IV SCH ×3 (02:45→14:12)
[2019-11-17] MEDS: CATHETER FLUSH 10 ML SYR IV SCH ×2 (02:45→08:41)
[2019-11-17 05:30] LABS: BASOPHILS % (AUTO) 0 % (0-10); EOSINOPHILS # (AUTO) 0.3 10^3/uL (0.0-0.3); EOSINOPHILS % (AUTO) 4 % (0-10); HEMATOCRIT 32 % (35-52); HEMOGLOBIN 10.7 G/DL (11.5-16.0); LYMPHOCYTES # (AUTO) 2.4 X 10^3 (1.0-4.0); LYMPHOCYTES % (AUTO) 27 % (12-44); MEAN CORPUSCULAR HEMOGLOBIN 29 PG (25-34); MEAN CORPUSCULAR HGB CONC 33 G/DL (32-36); MEAN CORPUSCULAR VOLUME 87 FL (80-99); MEAN PLATELET VOLUME 11.1 FL (7.4-10.4); MONOCYTES # (AUTO) 0.6 X 10^3 (0.0-1.0); MONOCYTES % (AUTO) 7 % (0-12); NEUTROPHILS # (AUTO) 5.4 X 10^3 (1.8-7.8); NEUTROPHILS % (AUTO) 62 % (42-75); PLATELET COUNT 277 10^3/uL (130-400); WHITE BLOOD COUNT 8.7 10^3/uL (4.3-11.0)
[2019-11-17 05:45] LABS: ALBUMIN 3.2 GM/DL (3.2-4.5); CHLORIDE 110 MMOL/L (98-107); POTASSIUM 3.5 MMOL/L (3.6-5.0); SODIUM 139 MMOL/L (135-145)
[2019-11-17 05:47] LABS: GLUCOSE 111 MG/DL (70-105); TOTAL PROTEIN 6.2 GM/DL (6.4-8.2)
[2019-11-17 05:48] LABS: CARBON DIOXIDE 19 MMOL/L (21-32)
[2019-11-17 05:49] LABS: BILIRUBIN,TOTAL 0.2 MG/DL (0.1-1.0)
[2019-11-17 05:51] LABS: ALKALINE PHOSPHATASE 48 U/L (40-136); CREATININE SERUM 0.74 MG/DL (0.60-1.30); GFR ESTIMATED > 60
[2019-11-17 05:52] LABS: BUN/CREATININE RATIO 8
[2019-11-17 05:54] LABS: ALANINE AMINOTRANSFERASE 21 U/L (0-55)
[2019-11-17 08:00] VITALS: BP 143/78
[2019-11-17] MEDS: ENOXAPARIN 60 MG/0.6 ML (LOVENOX) SYR SC SCH (08:41)
[2019-11-17] MEDS ORDERED: METR500T PO (11:43)
[2019-11-17] MEDS ORDERED: LEVO750T9 PO (11:43)
[2019-11-17] MEDS ORDERED: OXYC5TAB96 PO (11:43)
--- NOTE | 2019-11-17 11:44 | Discharge Summary ---
Discharge Summary Hospital Course Was the Problem List Reviewed?: Yes Problems/Dx: (1) Diverticulitis of intestine Status: Acute Hospital Course Date of Admission: Nov 13, 2019 at 18:27 Admission Diagnosis : Family Physician/Provider: Jes Flores DO Date of Discharge: 11/17/19 Discharge Diagnosis: Acute diverticulitis Hospital Course: Uneventful course after admitted with IVF and IV abx and general surgery consultation. Labs were monitored and vitals remained stable. Patient was improving each day and was able to ambulate and tolerate CLD. Patient was deemed stable for DC with close f/u with me. Needs C-scope in 8 weeks since such a young age for diverticulitis and mother h/o Crohn's. Labs and Pending Lab Test: Laboratory Tests 11/17/19 05:20: White Blood Count 8.7, Red Blood Count 3.71L, Hemoglobin 10.7L, Hematocrit 32L, Mean Corpuscular Volume 87, Mean Corpuscular Hemoglobin 29, Mean Corpuscular Hemoglobin Concent 33, Red Cell Distribution Width 14.0, Platelet Count 277, Mean Platelet Volume 11.1H, Neutrophils (%) (Auto) 62, Lymphocytes (%) (Auto) 27, Monocytes (%) (Auto) 7, Eosinophils (%) (Auto) 4, Basophils (%) (Auto) 0, Neutrophils # (Auto) 5.4, Lymphocytes # (Auto) 2.4, Monocytes # (Auto) 0.6, Eosinophils # (Auto) 0.3, Basophils # (Auto) 0.0, Sodium Level 139, Potassium Level 3.5L, Chloride Level 110H, Carbon Dioxide Level 19L, Anion Gap 10, Blood Urea Nitrogen 6L, Creatinine 0.74, Estimat Glomerular Filtration Rate > 60, BUN/Creatinine Ratio 8, Glucose Level 111H, Calcium Level 8.0L, Corrected Calcium 8.6, Total Bilirubin 0.2, Aspartate Amino Transf (AST/SGOT) 23, Alanine Aminotransferase (ALT/SGPT) 21, Alkaline Phosphatase 48, Total Protein 6.2L, Albumin 3.2 Home Meds Active Flagyl (Metronidazole) 500 Mg Tablet 500 Mg PO TID Levaquin (Levofloxacin) 750 Mg Tablet 750 Mg PO DAILY Reported Systane 0.3-0.4% Eye Drops (Propylene Glycol/Peg 400) 15 Ml Drops 2 Drops OU PRN PRN Vitamin B-12 (Cyanocobalamin (Vitamin B-12)) 500 Mcg Tablet 500 Mcg PO DAILY Atorvastatin Calcium 20 Mg Tablet 20 Mg PO DAILY LAST FILLED 08-30-2019 #30/30 DAY SUPPLY Triamterene-Hctz 37.5-25 mg Tb (Triamterene/Hydrochlorothiazid) 1 Each Tablet 1 Each PO DAILY Amlodipine Besylate 5 Mg Tablet 5 Mg PO BID LAST FILLED 09-27-2019 #60/30 DAY SUPPLY Assessment/Pt Instructions Dr Flores this week Discharge Planning: <30 minutes discharge planning Discharge Instructions Discharge Diet: Soft Diet, Low Residue Activity as Tolerated: Yes Discharge Physical Examination Vital Signs Vital Signs Date Time Temp Pulse Resp B/P (MAP) Pulse Ox O2 Delivery O2 Flow Rate FiO2 11/17/19 08:54 Room Air 11/17/19 08:00 35.6 73 18 143/78 (99) 99 General Appearance: No Apparent Distress, WD/WN, Chronically ill, Obese Respiratory: Chest Non Tender, Lungs Clear, Normal Breath Sounds, No Accessory Muscle Use, No Respiratory Distress Cardiovascular: Regular Rate, Rhythm, No Edema, No Gallop, No JVD, No Murmur, Normal Peripheral Pulses Neurologic/Psychiatric: Alert, Oriented x3, No Motor/Sensory Deficits, Normal Mood/Affect Allergies: Coded Allergies: amoxicillin (Unverified Allergy, Mild, 10/03/08) codeine (Unverified Allergy, Mild, 10/03/08) potassium clavulanate (Unverified Allergy, Mild, 10/03/08) Discharge Summary Date of Admission Nov 13, 2019 at 18:27 Date of Discharge Discharge Date: Nov 17, 2019 Admission Diagnosis Assessment: Acute diverticulitis Abdominal pain HTN Edema chronic Plan: IV abx IVF Pain control Discharge Diagnosis Assessment: LLQ acute diverticulitis Pain control Abx (1) Diverticulitis of intestine Status: Acute Clinical Quality Measures DVT/VTE Risk/Contraindication: Risk Factor Score Per Nursin RFS Level Per Nursing on Admit: 2=Moderate JES FLORES DO Nov 17, 2019 11:44
[2019-11-17] MEDS ORDERED: KCL 10 MEQ TAB (MICRO K) PO ONE ×2 (11:45→14:07)
[2019-11-17] MEDS ORDERED: POTA10TA36 PO (11:46)
--- NOTE | 2019-11-17 13:32 | Progress Note ---
Subjective Date Seen by a Provider: Nov 17, 2019 Time Seen by a Provider: 13:00 Subjective/Events-last exam doing better. less abd pain. tolerating low residue diet. no fever/chills. Objective Exam Vital Signs Date Time Temp Pulse Resp B/P (MAP) Pulse Ox O2 Delivery O2 Flow Rate FiO2 11/17/19 08:54 Room Air 11/17/19 08:00 35.6 73 18 143/78 (99) 99 Room Air 11/17/19 00:00 36.3 74 16 154/72 (99) 99 Room Air 11/16/19 21:00 Room Air 11/16/19 16:00 37.2 83 18 170/85 (113) 97 Room Air I & O 11/17/19 07:00 Intake Total 2250 ml Balance 2250 ml Capillary Refill : Less Than 3 SecondsLess Than 3 Seconds General Appearance: No Apparent Distress HEENT: PERRL/EOMI Neck: Full Range of Motion Respiratory: Chest Non Tender, Lungs Clear, Normal Breath Sounds Cardiovascular: Regular Rate, Rhythm Gastrointestinal: normal bowel sounds, soft Extremity: Normal Capillary Refill Neurologic/Psychiatric: Alert, Oriented x3 Skin: Normal Color Lymphatic: No Adenopathy Results Lab Laboratory Tests 11/17/19 05:20: White Blood Count 8.7, Red Blood Count 3.71L, Hemoglobin 10.7L, Hematocrit 32L, Mean Corpuscular Volume 87, Mean Corpuscular Hemoglobin 29, Mean Corpuscular Hemoglobin Concent 33, Red Cell Distribution Width 14.0, Platelet Count 277, Mean Platelet Volume 11.1H, Neutrophils (%) (Auto) 62, Lymphocytes (%) (Auto) 27, Monocytes (%) (Auto) 7, Eosinophils (%) (Auto) 4, Basophils (%) (Auto) 0, Neutrophils # (Auto) 5.4, Lymphocytes # (Auto) 2.4, Monocytes # (Auto) 0.6, Eosinophils # (Auto) 0.3, Basophils # (Auto) 0.0, Sodium Level 139, Potassium Level 3.5L, Chloride Level 110H, Carbon Dioxide Level 19L, Anion Gap 10, Blood Urea Nitrogen 6L, Creatinine 0.74, Estimat Glomerular Filtration Rate > 60, BUN/Creatinine Ratio 8, Glucose Level 111H, Calcium Level 8.0L, Corrected Calcium 8.6, Total Bilirubin 0.2, Aspartate Amino Transf (AST/SGOT) 23, Alanine Aminotransferase (ALT/SGPT) 21, Alkaline Phosphatase 48, Total Protein 6.2L, Albumin 3.2 Assessment/Plan Assessment/Plan Assess & Plan/Chief Complaint non-complicated sigmoid diverticulitis. improved on bowel rest and abx. may be discharged home. recommend low residue diet for 6 weeks then high fiber diet. Clinical Quality Measures DVT/VTE Risk/Contraindication: Risk Factor Score Per Nursin RFS Level Per Nursing on Admit: 2=Moderate LORRI MAURICIO MD Nov 17, 2019 13:32
--- NOTE | 2019-11-17 15:30 | NUR ---
RX AND INST REVIEWED AND VERBALIZED UNDERSTANDING. DC'D PER WC TO HOME.
== END 2019-11-17 15:30 | disposition home or self-care (01) | DRG 392 ==
LOC: EDUNIT# 15:57 → ER 15:59 → 4TH 18:27
PROVIDERS: ADMIT Internal Medicine; ATTEND Internal Medicine
DX: K57.32 Diverticulitis of large intestine without perforation or abscess without bleeding (principal); Z68.43 Body mass index [BMI] 50.0-59.9, adult; I10 Essential (primary) hypertension; E53.9 Vitamin B deficiency, unspecified; I89.0 Lymphedema, not elsewhere classified; K57.90 Diverticulosis of intestine, part unspecified, without perforation or abscess without bleeding; E66.9 Obesity, unspecified; E66.01 Morbid (severe) obesity due to excess calories; E87.6 Hypokalemia; Z83.79 Family history of other diseases of the digestive system; L50.0 Allergic urticaria; T40.2X5A Adverse effect of other opioids, initial encounter
CPT/HCPCS: 36415; 74176; 76937; 80053; 81000; 82962; 83690; 83735; 84145; 85007; 85025; 85027; 86141